=== PATIENT | male | born 1940 | race Caucasian/White ===

== ENCOUNTER 2016-08-03 14:33 | Inpatient (IN) | payer MEDICARE ==
[~2016-08-03] VITALS: Ht 165.1 cm; Wt 50.3 kg
--- NOTE | 2016-08-03 14:53 | NUR ---
Patient is AOx4, calm & cooperative at this time. Patient is eating sandwich with good appetite, pending medical clearance by our ER doctor at this time. Patient was accepted by Dr. Davis for psych needs and Dr Marx for internal medicines needs per nursing bindery supervisor Kristin. Belongings List completed. Patient will go to room 137-B. Nurse Morgan accepted nursing hands off report.
[2016-08-03 15:08] LABS: BASOPHILS # (AUTO) 0.1 K/uL (0.0-8.0); BASOPHILS % (AUTO) 0.6 % (0.0-2.0); EOSINOPHILS # (AUTO) 0.7 K/uL (0.0-0.7); EOSINOPHILS % (AUTO) 7.7 % (0.0-7.0); HEMATOCRIT 38.1 % (40-50); HEMOGLOBIN 12.7 G/DL (14.0-18.0); LYMPHOCYTES # (AUTO) 1.7 K/UL (0.8-4.8); LYMPHOCYTES % (AUTO) 18.8 % (20.5-51.5); MEAN CORPUSCULAR HGB CONC 33 g/dL (32.0-37.0); MEAN CORPUSCULAR VOLUME 87.3 FL (82.0-92.0); MONOCYTES # (AUTO) 0.4 K/UL (0.1-1.30); MONOCYTES % (AUTO) 4.2 % (0.0-11.0); NEUTROPHILS % (AUTO) 68.7 % (38.5-71.5); PLATELET COUNT (AUTO) 431 K/UL (150-450); RED BLOOD CELL COUNT(AUTO) 4.36 MIL/UL (4.7-6.1); RED CELL DISTRIBUTION WIDTH 17.1 % (11.5-14.5); WHITE BLOOD COUNT (AUTO) 8.9 K/UL (4.0-11.2)
[2016-08-03] MEDS ORDERED: CYMBALTA (15:08)
[2016-08-03] MEDS ORDERED: SIMVASTATIN (15:08)
[2016-08-03] MEDS ORDERED: EFFEXOR (15:08)
[2016-08-03] MEDS ORDERED: OXYCODONE (15:08)
[2016-08-03] MEDS ORDERED: LOPRESSOR (15:08)
--- NOTE | 2016-08-03 15:08 | NUR ---
MEDICATION INFORMATION FROM PATIENT - BEST HE CAN RECALL. NO DOSAGES SPECIFIED.
[2016-08-03 15:10] LABS: CALCIUM 8.9 mg/dL (8.5-10.1); CARBON DIOXIDE 31 mmol/L (21-32); CHLORIDE 102 mmol/L (98-107); GLUCOSE 93 mg/dL (74-106); POTASSIUM 4.3 mmol/L (3.5-5.1); SODIUM SERUM 140 mmol/L (136-145); UREA NITROGEN, BLOOD 15 mg/dL (7-18)
[2016-08-03 15:13] LABS: ETHANOL < 3 MG/DL (0-0)
[2016-08-03 15:16] LABS: ALANINE AMINOTRANSFERASE 18 U/L (16-63); ALBUMIN 3.2 g/dL (3.4-5.0); ALKALINE PHOSPHATASE 59 U/L (50-136); ASPARTATE AMINOTRANSFERASE 18 U/L (15-37); BILIRUBIN,DIRECT < 0.1 mg/dL (0.0-0.2); BILIRUBIN,TOTAL 0.2 mg/dL (0.2-1.0); TOTAL PROTEIN, SERUM 7.5 g/dL (6.4-8.2)
[2016-08-03 15:19] LABS: ACETAMINOPHEN < 2.0 ug/mL (10-30)
--- NOTE | 2016-08-03 15:48 | NUR ---
Patient is now medically cleared by our ER doctor Lai for [facility] admission, pending admitting papers from ER registration staff Dominga at this time.
[2016-08-03 15:52] LABS: ANISOCYTOSIS 1+
[2016-08-03 15:58] LABS: *BILIRUBIN,URIN NEGATIVE (NEGATIVE); *BLOOD, URINE NEGATIVE (NEGATIVE); *CLARITY,URINE CLEAR (CLEAR); *COLOR,URINE YELLOW (YELLOW); *KETONES,URINE NEGATIVE (NEGATIVE); *PROTEIN,URINE NEGATIVE (NEGATIVE); *UROBILINOGEN,URINE 0.2 E.U./dl (NORMAL); LEUKOCYTE ESTERASE ,URINE NEGATIVE (NEGATIVE); NITRITE, URINE NEGATIVE (NEGATIVE); PH,URINE 5.5 (5.0-8.0); UGLUCOSE NEGATIVE (NEGATIVE)
[2016-08-03 16:00] VITALS: BP 90/61
[2016-08-03 16:08] LABS: *AMPHETAMINE, URINE NEGATIVE (NEGATIVE); *BARBITURATE, URINE NEGATIVE (NEGATIVE); *CANNABINOID, URINE NEGATIVE (NEGATIVE); *COCCAINE, URINE NEGATIVE (NEGATIVE); *OPIATE, URINE NEGATIVE (NEGATIVE); *PHENCYCLIDINE SCREEN,URINE NEGATIVE (NEGATIVE)
[2016-08-03 16:12] LABS: MUCUS,URINE MANY /LPF (0-FEW); SQUAMOUS EPITHELIAL CELL,UR FEW /HPF (NONE SEEN)
[2016-08-03] MEDS ORDERED: CLONAZEPAM 0.5 MG TABLET PO PRN (16:30)
[2016-08-03] MEDS ORDERED: MAGNESIUM HYDROXIDE 30 ML LIQUID UDC PO PRN (16:30)
[2016-08-03] MEDS ORDERED: TEMAZEPAM 7.5 MG CAPSULE PO PRN (16:30)
[2016-08-03] MEDS ORDERED: ACETAMINOPHEN 325 MG TABLET PO PRN (16:30)
[2016-08-03] MEDS ORDERED: MAG HYDROX/AL HYDROX/SIMETH 30 ML LIQUID UDC PO PRN (16:30)
[2016-08-03 20:29] VITALS: BP 121/78
[2016-08-04 06:54] LABS: BASOPHILS # (AUTO) 0.1 K/uL (0.0-8.0); BASOPHILS % (AUTO) 0.9 % (0.0-2.0); EOSINOPHILS % (AUTO) 16.7 % (0.0-7.0); HEMATOCRIT 35.8 % (40-50); HEMOGLOBIN 11.9 G/DL (14.0-18.0); LYMPHOCYTES # (AUTO) 2.6 K/UL (0.8-4.8); LYMPHOCYTES % (AUTO) 40.6 % (20.5-51.5); MEAN CORPUSCULAR HEMOGLOBIN 29.2 UUG (27.0-31.0); MEAN CORPUSCULAR HGB CONC 33 g/dL (32.0-37.0); MEAN CORPUSCULAR VOLUME 87.9 FL (82.0-92.0); MONOCYTES # (AUTO) 0.4 K/UL (0.1-1.30); MONOCYTES % (AUTO) 6.3 % (0.0-11.0); NEUTROPHILS # (AUTO) 2.2 K/UL (1.8-8.9); NEUTROPHILS % (AUTO) 35.5 % (38.5-71.5); PLATELET COUNT (AUTO) 402 K/UL (150-450); RED BLOOD CELL COUNT(AUTO) 4.08 MIL/UL (4.7-6.1); RED CELL DISTRIBUTION WIDTH 16.9 % (11.5-14.5); WHITE BLOOD COUNT (AUTO) 6.3 K/UL (4.0-11.2)
[2016-08-04 07:24] LABS: THYROID STIMULATING HORMONE 5.431 mIU/mL (0.358-3.740)
[2016-08-04 07:30] VITALS: BP 141/93
--- NOTE | 2016-08-04 07:30 | NUR ---
PT RECEIVED IN BED SLEEPING.NO S/S OF DISTRESS NOTED.V/S ARE STABLE
[2016-08-04 07:52] LABS: ALBUMIN 2.9 g/dL (3.4-5.0); BILIRUBIN,TOTAL 0.2 mg/dL (0.2-1.0); CALCIUM 9.1 mg/dL (8.5-10.1); MAGNESIUM 1.9 mg/dL (1.8-2.4); PHOSPHOROUS 3.7 mg/dL (2.5-4.9); POTASSIUM 4.7 mmol/L (3.5-5.1); TOTAL PROTEIN, SERUM 7.1 g/dL (6.4-8.2)
[2016-08-04] MEDS: MULTIVITAMINS,THERAPEUTIC TABLET PO SCH (08:09)
[2016-08-04] MEDS: FOLIC ACID 1 MG TABLET PO SCH (08:09)
[2016-08-04] MEDS: THIAMINE HCL 100 MG TABLET PO SCH (08:09)
--- NOTE | 2016-08-04 08:20 | NUR ---
TOOK HIS MORNING MEDS AND EATING HIS BREAKFAST.PT IS AXOX 4
[2016-08-04 16:00] VITALS: BP 105/67
--- NOTE | 2016-08-04 17:42 | NUR ---
PT IS SITTING IN HIS BED EATING HIS DINNER.NO COMBATIVENESS NOTED.
[2016-08-04 19:40] VITALS: BP 93/65
[2016-08-04] MEDS: MIRTAZAPINE 15 MG TABLET PO SCH (20:13)
[2016-08-04 20:26] VITALS: BP 110/75
--- NOTE | 2016-08-04 20:51 | NUR ---
PATIENT PLEASANT UPON APPROACH, COOPERATIVE AND PLEASANT. PATIENT DENIES SI WILL CONTINUE TO MONITOR AND REDIRECT NEEDED. PATIENT ENCOURAGED TO EXPRESS FEELINGS AND CONCERNS. PATIENT COMPLAINT WITH HS MEDICATION. NO AGGRESSIVE OR COMBATIVE BEHAVIOR NOTED WILL CONTINUE TO MONITOR. PATIENT DENIES PAIN AT THIS TIME, WILL CONTINUE TO MONITOR. BED IN LOWEST POSITION, BED LOCKED, AND BED ALARM ON WHILE IN BED.
[2016-08-05 07:30] VITALS: BP 146/77
[2016-08-05] MEDS: MULTIVITAMINS,THERAPEUTIC TABLET PO SCH (08:36)
[2016-08-05] MEDS: FOLIC ACID 1 MG TABLET PO SCH (08:36)
[2016-08-05] MEDS: THIAMINE HCL 100 MG TABLET PO SCH (08:47)
--- NOTE | 2016-08-05 09:18 | NUR ---
Initial discharge instructions: The patient is homeless. The patient stated that he is open to SNF placement as well as referrals for substance abuse treatment centers. The patient will be provided with the appropriate referrals. SW will speak with patient and MD regarding most appropriate discharge plans. SS will form a safe and proper discharge.
[2016-08-05 15:03] VITALS: BP 91/61
[2016-08-05 20:00] VITALS: BP 126/75
[2016-08-05] MEDS: MIRTAZAPINE 15 MG TABLET PO SCH (20:30)
--- NOTE | 2016-08-05 21:27 | NUR ---
PATIENT PLEASANT UPON APPROACH, COOPERATIVE AND PLEASANT. PATIENT DENIES SI WILL CONTINUE TO MONITOR AND REDIRECT NEEDED. PATIENT ENCOURAGED TO EXPRESS FEELINGS AND CONCERNS. PATIENT COMPLAINT WITH HS MEDICATION. NO AGGRESSIVE OR COMBATIVE BEHAVIOR NOTED WILL CONTINUE TO MONITOR. PATIENT DENIES PAIN AT THIS TIME, WILL CONITNUE TO MONITOR. BED IN LOWEST POSITION, BED LOCKED, AND BED ALARM ON WHILE IN BED.
[2016-08-06 07:30] VITALS: BP 104/69
[2016-08-06] MEDS: THIAMINE HCL 100 MG TABLET PO SCH (09:41)
[2016-08-06] MEDS: MULTIVITAMINS,THERAPEUTIC TABLET PO SCH (09:41)
[2016-08-06] MEDS: FOLIC ACID 1 MG TABLET PO SCH (09:41)
[2016-08-06 15:11] VITALS: BP 127/87
[2016-08-06 20:00] VITALS: BP 111/62
[2016-08-06] MEDS: SIMVASTATIN 10 MG TABLET PO SCH (20:33)
[2016-08-06] MEDS: MIRTAZAPINE 15 MG TABLET PO SCH (20:49)
[2016-08-07 07:30] VITALS: BP 131/90
[2016-08-07] MEDS: THIAMINE HCL 100 MG TABLET PO SCH (08:12)
[2016-08-07] MEDS: FOLIC ACID 1 MG TABLET PO SCH (08:12)
[2016-08-07] MEDS: CYANOCOBALAMIN 1,000 MCG TABLET PO SCH (08:12)
[2016-08-07] MEDS: MULTIVITAMINS,THERAPEUTIC TABLET PO SCH (08:12)
[2016-08-07 09:10] LABS: *VITAMIN D 25-OH, D2 7.5 ng/mL (.)
[2016-08-07 15:00] VITALS: BP 151/92
[2016-08-07 20:10] VITALS: BP_SYST 126; BP_SYST 86; BP_DIAS 66; BP_DIAS 80
[2016-08-07] MEDS: SIMVASTATIN 10 MG TABLET PO SCH (21:07)
[2016-08-07] MEDS: MIRTAZAPINE 15 MG TABLET PO SCH (21:07)
[2016-08-08 07:30] VITALS: BP 124/75
[2016-08-08] MEDS: CYANOCOBALAMIN 1,000 MCG TABLET PO SCH (08:27)
[2016-08-08] MEDS: THIAMINE HCL 100 MG TABLET PO SCH (08:27)
[2016-08-08] MEDS: FOLIC ACID 1 MG TABLET PO SCH (08:27)
[2016-08-08] MEDS: MULTIVITAMINS,THERAPEUTIC TABLET PO SCH (08:27)
[2016-08-08] MEDS ORDERED: ALBUTEROL SULFATE 2.5 MG/3 ML NEBU NEB PRN (08:30)
[2016-08-08] MEDS: FLUTICASONE/SALMETEROL 250/50 INHALER INH SCH ×2 (08:36→20:39)
[2016-08-08 16:02] VITALS: BP 103/57
[2016-08-08 20:23] VITALS: BP 116/54
[2016-08-08] MEDS: MIRTAZAPINE 15 MG TABLET PO SCH (20:36)
[2016-08-08] MEDS: SIMVASTATIN 10 MG TABLET PO SCH (20:36)
[2016-08-09] MEDS: LEVOTHYROXINE SODIUM 25 MCG TABLET PO SCH (06:10)
[2016-08-09 07:36] VITALS: BP 120/76
[2016-08-09 08:11] LABS: ALBUMIN 3.1 g/dL (3.4-5.0); BILIRUBIN,TOTAL 0.2 mg/dL (0.2-1.0); CALCIUM 9.5 mg/dL (8.5-10.1); CREATININE 1.2 mg/dL (0.6-1.3); PHOSPHOROUS 4.3 mg/dL (2.5-4.9); TOTAL PROTEIN, SERUM 7.3 g/dL (6.4-8.2)
[2016-08-09 08:14] LABS: BASOPHILS % (AUTO) 0.5 % (0.0-2.0); EOSINOPHILS # (AUTO) 0.8 K/uL (0.0-0.7); HEMATOCRIT 37.4 % (40-50); HEMOGLOBIN 12.5 G/DL (14.0-18.0); LYMPHOCYTES # (AUTO) 1.6 K/UL (0.8-4.8); LYMPHOCYTES % (AUTO) 16.7 % (20.5-51.5); MEAN CORPUSCULAR HEMOGLOBIN 29.5 UUG (27.0-31.0); MEAN CORPUSCULAR HGB CONC 33 g/dL (32.0-37.0); MEAN CORPUSCULAR VOLUME 88.2 FL (82.0-92.0); MONOCYTES # (AUTO) 0.7 K/UL (0.1-1.30); MONOCYTES % (AUTO) 6.9 % (0.0-11.0); NEUTROPHILS # (AUTO) 6.5 K/UL (1.8-8.9); NEUTROPHILS % (AUTO) 67.9 % (38.5-71.5); PLATELET COUNT (AUTO) 333 K/UL (150-450); RED BLOOD CELL COUNT(AUTO) 4.24 MIL/UL (4.7-6.1); RED CELL DISTRIBUTION WIDTH 16.3 % (11.5-14.5)
[2016-08-09 08:19] LABS: WHITE BLOOD COUNT (AUTO) 9.6 K/UL (4.0-11.2)
[2016-08-09] MEDS: CYANOCOBALAMIN 1,000 MCG TABLET PO SCH (09:05)
[2016-08-09] MEDS: MULTIVITAMINS,THERAPEUTIC TABLET PO SCH (09:05)
[2016-08-09] MEDS: THIAMINE HCL 100 MG TABLET PO SCH (09:05)
[2016-08-09] MEDS: FOLIC ACID 1 MG TABLET PO SCH (09:06)
[2016-08-09] MEDS: FLUTICASONE/SALMETEROL 250/50 INHALER INH SCH ×2 (09:11→20:19)
[2016-08-09] MEDS ORDERED: IPRATROPIUM BROMIDE 0.5 MG/2.5 ML NEBU NEB PRN (11:30)
[2016-08-09] MEDS: AMOXICILLIN-CLAVUL 875-125MG TABLET PO SCH ×2 (12:35→20:18)
[2016-08-09 15:51] VITALS: BP 92/63
[2016-08-09] MEDS: SIMVASTATIN 10 MG TABLET PO SCH (20:18)
[2016-08-09] MEDS: MIRTAZAPINE 15 MG TABLET PO SCH (20:18)
--- NOTE | 2016-08-09 20:30 | NUR ---
PT'S A/A/O X 2;C/O MILD PAIN ~3/10 AT THE RIGHT SHOULDER BUT NO NEURO-DEFICIT @ RIGHT TIME AND PT'S ABLE TO MOVE ALL FINGERS;TYLENOL 650 MG PO X1 WAS GIVEN TO PT MD'S ORDER;EDUCATED TO PT AND HE AGREED TO TAKE IT.PT'S COOPERATIVE W/CARE AND MEDICATIONS AT THIS TIME.CONTINUED MONITORING TO PT.
[2016-08-09 20:36] VITALS: BP 93/61
[2016-08-10] MEDS: LEVOTHYROXINE SODIUM 25 MCG TABLET PO SCH (06:08)
--- NOTE | 2016-08-10 06:20 | NUR ---
PT SLEPT WELL IN THE SHIFT;TOTAL'S 9 HOURS.NO DISTRESS NOTED.PT'S COOPERATIVE W/CARE WELL,DENIED OF PAIN OR ANY DISCOMFORT,COMPLIANT WITH MEDICATION.
[2016-08-10 07:30] VITALS: BP 127/82
[2016-08-10] MEDS: CYANOCOBALAMIN 1,000 MCG TABLET PO SCH (08:31)
[2016-08-10] MEDS: THIAMINE HCL 100 MG TABLET PO SCH (08:31)
[2016-08-10] MEDS: MULTIVITAMINS,THERAPEUTIC TABLET PO SCH (08:31)
[2016-08-10] MEDS: FLUTICASONE/SALMETEROL 250/50 INHALER INH SCH ×2 (08:31→20:08)
[2016-08-10] MEDS: FOLIC ACID 1 MG TABLET PO SCH (08:31)
[2016-08-10] MEDS: AMOXICILLIN-CLAVUL 875-125MG TABLET PO SCH ×2 (08:31→20:08)
[2016-08-10 15:56] VITALS: BP 99/76
[2016-08-10] MEDS: SIMVASTATIN 10 MG TABLET PO SCH (20:08)
[2016-08-10] MEDS: MIRTAZAPINE 15 MG TABLET PO SCH (20:08)
[2016-08-10 20:22] VITALS: BP 98/54
[2016-08-11] MEDS: LEVOTHYROXINE SODIUM 25 MCG TABLET PO SCH (05:49)
[2016-08-11 07:30] VITALS: BP 113/75
[2016-08-11] MEDS: FOLIC ACID 1 MG TABLET PO SCH (08:28)
[2016-08-11] MEDS: MULTIVITAMINS,THERAPEUTIC TABLET PO SCH (08:28)
[2016-08-11] MEDS: CYANOCOBALAMIN 1,000 MCG TABLET PO SCH (08:28)
[2016-08-11] MEDS: THIAMINE HCL 100 MG TABLET PO SCH (08:28)
[2016-08-11] MEDS: AMOXICILLIN-CLAVUL 875-125MG TABLET PO SCH (08:28)
[2016-08-11] MEDS: FLUTICASONE/SALMETEROL 250/50 INHALER INH SCH (08:28)
--- NOTE | 2016-08-11 08:58 | NUR ---
DC Note: The patient will be discharged today to [facility]) [[address] [place] [address] ] via ambulance at 1:30 pm. Spoke with CODIE and Manuel in admissions who stated that they will be able to accept the patient today. Spoke with the patient and he is aware and agreeable with the discharge plan. The patient will follow-up with vessel captain Dr. Nichole Hurd and psychiatrist Dr. Shayan Davis at the facility. The patient was provided with referrals for tobacco cessation for [employer] 4-506-JHEMGLX and [employer] . The patient was provided with the brief intervention for substance abuse and was referred to [facility] , [facility] , and [facility] .
--- NOTE | 2016-08-11 12:30 | NUR ---
GPS: Nursing Notes: Discharge Notes: Patient awake and responding to his name, cooperative and pleasant with staff, compliant with his medications, denies any SI/HI, denies any AH/VH, denies any pain or discomfort, discharge to [facility] at [address] [place] [id number] , report given to nurse Bisi RN, transported via ambulance to facility, took all his belongings with him, instructions and medication reconciliation given to newspaper journalist. The patient will follow-up with teasel setter Dr. Nichole Hurd and psychiatrist Dr. Shayan Davis at the facility. The patient was provided with referrals for tobacco cessation for [employer] 8-189-TEKNNFJ and [employer] . The patient was provided with the brief intervention for substance abuse and was referred to [facility] , [facility] , and [facility] . Facility to follow up with old right shoulder fracture as an outpatient as soon as possible per Dr. Murray's order.
== END 2016-08-11 12:30 | DRG 885 ==
LOC: ER 14:38 → GPS 15:55
PROVIDERS: ADMIT Psychiatry & Neurology Psychiatry; ATTEND Psychiatry & Neurology Psychiatry
DX: F33.2 Major depressive disorder, recurrent severe without psychotic features (principal); I42.9 Cardiomyopathy, unspecified; E44.0 Moderate protein-calorie malnutrition; F10.20 Alcohol dependence, uncomplicated; Z59.0 Homelessness; I10 Essential (primary) hypertension; Z99.3 Dependence on wheelchair; I25.2 Old myocardial infarction; F29 Unspecified psychosis not due to a substance or known physiological condition; R42 Dizziness and giddiness; Z87.820 Personal history of traumatic brain injury; J44.9 Chronic obstructive pulmonary disease, unspecified; Z87.891 Personal history of nicotine dependence; Z96.642 Presence of left artificial hip joint; Z91.19 Patient's noncompliance with other medical treatment and regimen; Z90.49 Acquired absence of other specified parts of digestive tract; E03.9 Hypothyroidism, unspecified; D64.9 Anemia, unspecified; E78.5 Hyperlipidemia, unspecified; R62.7 Adult failure to thrive; Z85.028 Personal history of other malignant neoplasm of stomach; J20.9 Acute bronchitis, unspecified; M19.011 Primary osteoarthritis, right shoulder
CPT/HCPCS: 36415; 71010; 73030; 80307; 83550; 83735; 84100; 84443; 85025; 93005; 94664; 97001; A4663; G0480-TC; G6040-TC